=== PATIENT | female | born 1980 | race Caucasian/White ===

== ENCOUNTER 2018-10-19 13:30 | Outpatient (RCR) | payer BC ==
[~2018-10-19 13:30] MED LIST: CLARITIN REDITA10 MG PO; MOTRIN 600600 MG/TAB PO; PERCOCET 325 MG1 TA2 PO; PRENATAL1 TA1 PO; RANITIDINE HYD150 M1 PO
== END 2018-12-04 16:41 | disposition home or self-care (01) ==
LOC: WSC 13:30
DX: M75.41 Impingement syndrome of right shoulder (principal); M75.101 Unspecified rotator cuff tear or rupture of right shoulder, not specified as traumatic

== ENCOUNTER 2019-01-14 08:30 | Outpatient (RCR) | payer BC | END 2019-01-26 13:39 | disposition home or self-care (01) | LOC: WSC 08:30 | DX: M25.511 Pain in right shoulder (principal) ==

== ENCOUNTER 2019-04-29 13:00 | Outpatient (RCR) | payer BC | END 2019-05-24 | disposition home or self-care (01) | LOC: WSC | DX: M25.811 Other specified joint disorders, right shoulder (principal); Z96.611 Presence of right artificial shoulder joint ==

== ENCOUNTER → 2020-05-24 | Outpatient (CLI) | payer BC | LOC: COL.PUL 04-18 10:00 | DX: R06.02 Shortness of breath (principal) | CPT/HCPCS: J7674 ==